=== PATIENT | male | born 1995 | race African-American/Black ===

== ENCOUNTER → 2020-10-15 | Outpatient (CLI) | payer BC ==
[~2020-10-15] MED LIST: GADOTERATE 5 MMOL/10 ML VIAL ONE; LIDOCAINE 1%, 10ML ONE; LIDOCAINE 1%, 20ML ONE; OMNIPAQUE 300 MG/ML, 10ML VIAL ONE; ROPivacaine/PF 0.2%, 10 ML ONE
== END | disposition home or self-care (01) ==
LOC: RAD 14:37
PROVIDERS: ATTEND Orthopaedic Surgery
DX: S63.025A Dislocation of radiocarpal joint of left wrist, initial encounter (principal); Z79.891 Long term (current) use of opiate analgesic; Z98.890 Other specified postprocedural states; V22.0XXA Motorcycle driver injured in collision with two- or three-wheeled motor vehicle in nontraffic accident, initial encounter; Y93.55 Activity, bike riding; Y92.89 Other specified places as the place of occurrence of the external cause; Y99.8 Other external cause status
CPT/HCPCS: 25246; 73115; 73219; A9575; J2795; J3490; Q9967

== ENCOUNTER 2020-11-03 14:36 | Day surgery (SDC) | payer BC ==
[~2020-11-03] VITALS: Ht 175.3 cm; Wt 81.8 kg
[2020-11-03] MEDS ORDERED: LACTATED RINGERS 1,000 ML IV SCH (15:30)
[2020-11-03] MEDS ORDERED: CHLORHEXIDINE 15 ML UDC PO ONE (15:30)
[2020-11-03] MEDS ORDERED: MELO7.5T31 PO (15:32)
[2020-11-03 15:37] VITALS: BP 138/86
[2020-11-03] MEDS ORDERED: CHLORHEXIDINE 15 ML UDC ONE (15:50)
[2020-11-03] MEDS ORDERED: PLEASE ENTER ALLERGIES MC SCH (16:00)
[2020-11-03] MEDS ORDERED: PLEASE ENTER HEIGHT AND WEIGHT MC SCH (16:00)
[2020-11-03] MEDS ORDERED: MIDAZOLAM 1 MG/ML, 2ML ONE (17:35)
[2020-11-03] MEDS ORDERED: FENTANYL PF 100 MCG/2ML ONE (17:35)
[2020-11-03] MEDS ORDERED: MEPERIDINE/PF 25MG/0.5ML IVPush PRN (18:00)
[2020-11-03] MEDS ORDERED: ACETAMINOPHEN 325 MG TABLET PO PRN (18:00)
[2020-11-03] MEDS ORDERED: MIDAZOLAM 1 MG/ML, 2ML IV PRN (18:00)
[2020-11-03] MEDS ORDERED: HYDROmorphone 1 MG/ML, 1ML INJ IVPush PRN (18:00)
[2020-11-03] MEDS ORDERED: PROMETHAZINE 25 MG/ML, 1ML IVPush PRN (18:00)
[2020-11-03] MEDS ORDERED: FENTANYL PF 100 MCG/2ML IV PRN (18:00)
[2020-11-03] MEDS ORDERED: OXYcodone 5 MG/5 ML ORAL.SOL UDC PO PRN (18:00)
[2020-11-03] MEDS ORDERED: KETOROLAC 30 MG/1 ML ONE (18:44)
[2020-11-03] MEDS ORDERED: LIDOCAINE/PF 1%-EPI 1:200K, 30 ML ONE (18:45)
[2020-11-03] MEDS ORDERED: CEFAZOLIN 1,000 MG ONE (19:40)
[2020-11-03] MEDS ORDERED: PROPOFOL 10 MG/ML, 20ML ONE (19:40)
[2020-11-03] MEDS ORDERED: DEXAMETHASONE 4 MG/ML, 1ML ONE (19:40)
[2020-11-03] MEDS ORDERED: LIDOCAINE-MPF 2% ,5ML ONE (19:40)
[2020-11-03] MEDS ORDERED: ONDANSETRON 2MG/ML, 2ML ONE (19:40)
== END 2020-11-03 22:42 | disposition home or self-care (01) ==
LOC: OR 14:36 → 4NE 20:55 → OR 22:42
PROVIDERS: ATTEND Orthopaedic Surgery
DX: S52.612A Displaced fracture of left ulna styloid process, initial encounter for closed fracture (principal); S63.015A Dislocation of distal radioulnar joint of left wrist, initial encounter; F12.90 Cannabis use, unspecified, uncomplicated; X58.XXXA Exposure to other specified factors, initial encounter; Y93.89 Activity, other specified; Y92.89 Other specified places as the place of occurrence of the external cause; Y99.8 Other external cause status; Z20.822 Contact with and (suspected) exposure to COVID-19; Z72.89 Other problems related to lifestyle
CPT/HCPCS: 25652; 25671; 64415; 73100; 87635; C1713; J0690; J1100; J1885; J2250; J2405; J2704; J3010; J7120; 76000; G0378